=== PATIENT | female | born 1960 | race American Indian/Alaskan Native ===

== ENCOUNTER 2020-12-05 08:56 | Emergency (ER) | payer BC ==
[2020-12-05] MEDS ORDERED: traMADol 50 MG TAB PO ONE (10:18)
[2020-12-05] MEDS ORDERED: CYCLOBENZAPRINE 10 MG TAB PO ONE (10:18)
--- NOTE | 2020-12-05 10:33 | Emergency Department Report ---
ED Back Pain/Injury HPI - General Chief Complaint: Back Pain/Injury Stated Complaint: BACK PAIN/SIATICA Time Seen by Provider: 12/05/20 10:05 Source: patient Limitations: No Limitations - History of Present Illness Initial Comments: Patient is a 60-year-old female presents emergency room with complaints of acute on chronic back pain that exacerbated over the last week. Patient states that she has been having back pain for 7 months. She reports that she has a history of sciatica and herniated disc. She is currently seeing an orthopedic doctor and has had epidurals and nerve blocks performed. She states that she has upcoming procedure on 12/15/2020. She states that she went to the orthopedic office yesterday and had a Toradol injection but that did not improve her pain. She denies any fall or injury. She states the pain starts in her right lower back and radiates down her right lower leg. She states that it causes muscle spasms. She states that she occasionally feels tingling in her right leg. She denies any fever, nausea, vomiting, diarrhea, chest pain, shortness of breath, abdominal pain, urinary symptoms, complete numbness, weakness, bowel or bladder incontinence. She also has a past medical history of hypertension. Allergy to sulfa. - Related Data Previous Rx's Medication Instructions Recorded Last Taken Type Metoclopramide [Reglan] 10 mg PO QID PRN #30 tablet 03/04/17 Unknown Rx Amlodipine Besylate [Norvasc] 2.5 mg PO DAILY #30 tablet 01/24/19 Unknown Rx Butalb/Acetaminophen/Caffeine 1 cap PO Q6HR PRN #10 cap 01/24/19 Unknown Rx [Fioricet 50-300-40 mg CAP] Ondansetron [Zofran Odt] 4 mg PO Q8HR PRN #7 tab.rapdis 01/24/19 Unknown Rx methOCARBAMOL [Robaxin TAB] 500 mg PO BID PRN #20 tab 12/05/20 Unknown Rx Allergies Allergy/AdvReac Type Severity Reaction Status Date / Time Sulfa (Sulfonamide Allergy Hives Verified 03/04/17 09:07 Antibiotics) ED Review of Systems ROS: Stated complaint: BACK PAIN/SIATICA Other details as noted in HPI Comment: All other systems reviewed and negative ED Past Medical Hx - Surgical History Additional Surgical History: x3. Myomectomy - Social History Smoking Status: Never Smoker Substance Use Type: None - Medications Home Medications: Home Medications Medication Instructions Recorded Confirmed Last Taken Type Metoclopramide [Reglan] 10 mg PO QID PRN #30 tablet 03/04/17 Unknown Rx Amlodipine Besylate [Norvasc] 2.5 mg PO DAILY #30 tablet 01/24/19 Unknown Rx Butalb/Acetaminophen/Caffeine 1 cap PO Q6HR PRN #10 cap 01/24/19 Unknown Rx [Fioricet 50-300-40 mg CAP] Ondansetron [Zofran Odt] 4 mg PO Q8HR PRN #7 tab.rapdis 01/24/19 Unknown Rx methOCARBAMOL [Robaxin TAB] 500 mg PO BID PRN #20 tab 12/05/20 Unknown Rx ED Physical Exam - General Limitations: No Limitations General appearance: alert, in no apparent distress - Head Head exam: Present: atraumatic, normocephalic - Eye Eye exam: Present: normal appearance, PERRL, EOMI. Absent: periorbital swelling, periorbital tenderness - ENT ENT exam: Present: mucous membranes moist - Neck Neck exam: Present: normal inspection, full ROM. Absent: tenderness, meningismus - Respiratory Respiratory exam: Present: normal lung sounds bilaterally. Absent: respiratory distress, wheezes, rales, rhonchi, stridor, chest wall tenderness, accessory muscle use, decreased breath sounds, prolonged expiratory - Cardiovascular Cardiovascular Exam: Present: regular rate, normal rhythm, normal heart sounds. Absent: systolic murmur, diastolic murmur, rubs, gallop - Extremities Exam Extremities exam: Present: other (no edema of the BLE, neurovasculalry intact to the BLE) - Back Exam Back exam: Present: normal inspection, full ROM, other (pain exacerbated by SLR of the right leg, no pain with SLR of the left leg). Absent: paraspinal tenderness, vertebral tenderness - Neurological Exam Neurological exam: Present: alert, oriented X3, CN II-XII intact, normal gait. Absent: motor sensory deficit - Psychiatric Psychiatric exam: Present: normal affect, normal mood - Skin Skin exam: Present: warm, dry, intact ED Course Vital Signs 12/05/20 12/05/20 09:16 10:56 Temperature 97.5 F L 97.8 F Pulse Rate 63 65 Respiratory 16 16 Rate Blood Pressure 167/86 158/84 [Left] O2 Sat by Pulse 100 100 Oximetry ED Medical Decision Making - Medical Decision Making Patient is a 60-year-old female presents emergency room with complaints of acute on chronic back pain that exacerbated over the last week. Patient states that she has been having back pain for 7 months. She reports that she has a history of sciatica and herniated disc. She is currently seeing an orthopedic doctor and has had epidurals and nerve blocks performed. She states that she has upcoming procedure on 12/15/2020. She states that she went to the orthopedic office yesterday and had a Toradol injection but that did not improve her pain. She denies any fall or injury. She states the pain starts in her right lower back and radiates down her right lower leg. She states that it causes muscle spasms. She states that she occasionally feels tingling in her right leg. She denies any fever, nausea, vomiting, diarrhea, chest pain, shortness of breath, abdominal pain, urinary symptoms, complete numbness, weakness, bowel or bladder incontinence. She also has a past medical history of hypertension. Allergy to sulfa. Vitals are stable. On exam: No midline or paraspinal C-spine, T-spine, L-spine tender palpation, full range of motion, no focal neuro deficits,pain exacerbated by SLR of the right leg, no pain with SLR of the left leg, no edema of the BLE, neurovasculalry intact to the BLE, no skin changes. She has no tachycardia or fever. Patient has no red flag warning signs of back pain, no trauma, no unexplained weight loss, no neuro deficits, no fever, no IV drug use, no history of cancer. Patient is currently under the care of an dispute resolution specialist. Patient given pain medication while in the emergency department as she did not drive with improvement of her symptoms. Patient given prescription for Robaxin to help with her muscle spasms. Advised patient Please take medication as prescribed as needed. Do not drive or operate machinery while taking muscle relaxer Robaxin. May use ice pack, heating pad, rest, epsom salt bath. Do not use [place] balm ointment while using heat or ice. Follow-up with your primary care doctor. Follow-up with your dispute resolution specialist. Return to emergency room for new or worsening symptoms. Critical care attestation.: If time is entered above; I have spent that time in minutes in the direct care of this critically ill patient, excluding procedure time. ED Disposition Clinical Impression: Back pain Qualifiers: Back pain location: low back pain Chronicity: chronic Back pain laterality: right Sciatica presence: with sciatica Sciatica laterality: sciatica of right side Qualified Code(s): M54.41 - Lumbago with sciatica, right side Disposition: TO HOME OR SELFCARE Is pt being admited?: No Does the pt Need Aspirin: No Condition: Stable Instructions: Chronic Back Pain, [place] Additional Instructions: Please take medication as prescribed as needed. Do not drive or operate machinery while taking muscle relaxer Robaxin. May use ice pack, heating pad, rest, epsom salt bath. Do not use [place] balm ointment while using heat or ice. Follow-up with your primary care doctor. Follow-up with your orthopedic sp ecialist. Return to emergency room for new or worsening symptoms. Prescriptions: methOCARBAMOL [Robaxin TAB] 500 mg PO BID PRN #20 tab PRN Reason: muscle spasm/pain Referrals: your, orthopedic doctor [Other] - 2-3 Days your, primary care doctor [Other] - 2-3 Days Time of Disposition: 10:31 Print Language: [place]
[2020-12-05 10:57] VITALS: BP 158/84
== END 2020-12-05 11:14 | disposition home or self-care (01) ==
LOC: ED 08:56
DX: M54.5 Low back pain (principal); G89.29 Other chronic pain; Z98.890 Other specified postprocedural states; Z79.899 Other long term (current) drug therapy; Z88.2 Allergy status to sulfonamides
CPT/HCPCS: 99283